=== PATIENT | male | born 1965 | race African-American/Black ===

== ENCOUNTER 2016-12-18 09:31 | Day surgery (SDC) | payer MEDICAID ==
[~2016-12-18 09:31] MED LIST: DIPHENHYDRAMINE HCL 50 MG/ML VIAL ONE; EPINEPHRINE INJ 1 MG/10 ML DISP.SYRIN ONE; FLUMAZENIL INJ 0.5 MG/5 ML VIAL IV ONE; GLUCAGON,HUMAN RECOMB 1 MG INJ ONE; MIDAZOLAM 2 MG/2 ML INJ ONE; NALOXONE HCL INJ/PF 0.4 MG/1 ML SDV ONE; ONDANSETRON HCL INJ/PF 4 MG/2 ML SDV ONE; PROMETHAZINE HCL INJ 25 MG/1 ML VIAL ONE
[2016-12-18] MEDS: MIDAZOLAM 2 MG/2 ML INJ ONE ×2 (10:53→10:57)
[2016-12-18] MEDS: FENTANYL CITRATE INJ/PF 100 MCG/2 ML AMPUL ONE ×2 (10:55→11:02)
--- NOTE | 2016-12-18 11:12 | Operative Report ---
Operative Report DATE OF SURGERY: 12/18/16 Operative Report: The risks, benefits and alternatives of the procedure including risks of bleeding, perforation requiring surgery are explained to the patient detail and informed consent is obtained. Patient is taken back to the endoscopy suite. Patient is placed in left, lateral decubital position. Timeout is called. Conscious sedation medications are provided. A rectal examination was done which did not reveal any masses, tears or fissures. An Olympus was scope is inserted patient's rectum. Scope was then gradually advanced all the way to the cecum. Seems identified by the usual anatomical landmarks of the ileocecal valve as well as the appendiceal office. Photodocumentation was obtained. Prep is good. Scope was then sequentially pulled back via the rest segments of the colon including the ascending colon, back flexure, transverse colon, splenic flexure, descending colon and finally into the rectosigmoid portions of the colon. Retroflexion maneuvers performed. PREOPERATIVE DIAGNOSIS: Colorectal cancer screening. POSTOPERATIVE DIAGNOSIS: Polyp in the rectosigmoid that stable to be removed via biopsy forceps. OPERATION: Colonoscopy with biopsy SURGEON: ARIEL ZELAYA ANESTHESIA: Moderate Sedation - 4 mg of Versed, 75 g of fentanyl. Conscious sedation monitoring activity minutes. TISSUE REMOVED OR ALTERED: Colon polyp retrieved. COMPLICATIONS: None. ESTIMATED BLOOD LOSS: none. INTRAOPERATIVE FINDINGS: No other masses, AVMs, diverticulosis is noted. Internal hemorrhoids. PROCEDURE: Patient tolerated procedure well. No immediate postprocedure complications are noted. Patient is discharged in good condition. Discharge date 12/18/2016. Discharge diet: Regular. Discharge activity: Regular. 5 years surveillance colonoscopy. We'll await on biopsy. 2-3 week follow-up to discuss findings. Patient is instructed to call the office or proceed to the emergency room should there be any further problems or questions.
[2016-12-18 12:20] VITALS: BP 156/106
== END 2016-12-18 12:20 | disposition home or self-care (01) ==
LOC: END 09:31
PROVIDERS: ATTEND Internal Medicine Gastroenterology
PROC: 0DBN8ZX Excision of Sigmoid Colon, Via Natural or Artificial Opening Endoscopic, Diagnostic (ICD-10-PCS; 2016-12-18)
PROC: 0DBF8ZX Excision of Right Large Intestine, Via Natural or Artificial Opening Endoscopic, Diagnostic (ICD-10-PCS; principal; 2016-12-18 11:00)
DX: Z12.11 Encounter for screening for malignant neoplasm of colon (principal); K64.8 Other hemorrhoids; I25.10 Atherosclerotic heart disease of native coronary artery without angina pectoris; I10 Essential (primary) hypertension; I73.9 Peripheral vascular disease, unspecified; E78.2 Mixed hyperlipidemia; M17.9 Osteoarthritis of knee, unspecified; M16.10 Unilateral primary osteoarthritis, unspecified hip; Z79.02 Long term (current) use of antithrombotics/antiplatelets; Z79.899 Other long term (current) drug therapy; Z79.82 Long term (current) use of aspirin
CPT/HCPCS: 45380; 88305 ×2; J2250; J3010; J0171; J1200; J1610; J2310; J2405; J2550; J3490